=== PATIENT | female | born 1985 | race Caucasian/White ===

== ENCOUNTER 2021-06-30 09:26 | Emergency (ER) | payer OTHER ==
[~2021-06-30] VITALS: Ht 149.9 cm; Wt 45.4 kg
--- NOTE | 2021-06-30 09:30 | NUR ---
BIBS FOR C/O HEADACHE AND LEFT SIDED FACE AND ARM NUMBNESS SINCE 11 PM LAST NIGHT. IN ROOM AIR AND DENIES SOB. RESPIRATION REGULAR AND UNLABORED. ATTACHED TO THE MONITOR. WILL CONTINUE TO MONITOR THE PATIENT.
[2021-06-30] MEDS ORDERED: diphenhydrAMINE HCL 50 MG/ML VIAL ONE (10:07)
[2021-06-30] MEDS ORDERED: SUMATRIPTAN SUCCINATE 6 MG/0.5 ML VIAL SQ ONE (10:07)
[2021-06-30] MEDS: diphenhydrAMINE HCL 50 MG/ML VIAL IV ONE (10:10)
[2021-06-30] MEDS: IV NS 0.9% 1,000 ML BAG IV ONE (10:18)
[2021-06-30] MEDS: SUMATRIPTAN SUCCINATE 6 MG/0.5 ML VIAL SQ ONE (10:30)
[2021-06-30] MEDS ORDERED: KETOROLAC TROMETHAMINE INJ 30 MG/ML VIAL ONE (11:06)
[2021-06-30] MEDS: KETOROLAC TROMETHAMINE INJ 30 MG/ML VIAL IV ONE (11:09)
--- NOTE | 2021-06-30 11:09 | NUR ---
THE PATIENT IS TAKEN TO CT VIA RNEY
[2021-06-30] MEDS ORDERED: ONDA4TAB5 PO (12:01)
[2021-06-30] MEDS ORDERED: P-EP-92 PO (12:01)
[2021-06-30] MEDS ORDERED: IBUP-1957 PO (12:01)
[2021-06-30] MEDS ORDERED: CLIN300C12 PO (12:01)
--- NOTE | 2021-06-30 12:48 | NUR ---
IV removed. Catheter intact and site benign. Pressure and 4x4 applied to site. No bleeding noted.Patient discharged to home in stable condition. Written and verbal after care instructions given. Patient verbalizes understanding of instruction.
[2021-06-30 12:49] VITALS: BP 126/75
== END 2021-06-30 12:50 | disposition home or self-care (01) ==
LOC: ER 09:30
DX: G43.909 Migraine, unspecified, not intractable, without status migrainosus (principal); J32.0 Chronic maxillary sinusitis; Z88.8 Allergy status to other drugs, medicaments and biological substances
CPT/HCPCS: 70450; 96361; 96372; 96374; 99284; J1885; J3030; J7030; J1200

== ENCOUNTER 2024-01-17 15:48 | Emergency (ER) | payer OTHER ==
[~2024-01-17] VITALS: Ht 152.4 cm; Wt 45.4 kg
[~2024-01-17 15:48] MED LIST: CLIN300C12 PO; IBUP-1957 PO; ONDA4TAB5 PO; P-EP-92 PO
[2024-01-17 16:40] LABS: BASOPHILS # (AUTO) 0.1 K/uL (0.0-0.2); BASOPHILS % (AUTO) 1.1 % (0.0-2.0); CALCIUM, SERUM 8.5 mg/dL (8.5-10.1); CARBON DIOXIDE 28 mmol/L (21-32); CHLORIDE 106 mmol/L (98-107); CREATININE 1.2 mg/dL (0.6-1.3); EOSINOPHILS # (AUTO) 0.3 K/uL (0.0-0.7); EOSINOPHILS % (AUTO) 3.7 % (0.0-6.0); GLUCOSE 104 mg/dL (74-106); HEMATOCRIT 38 % (33-45); HEMOGLOBIN 12.7 g/dL (11.5-14.8); LYMPHOCYTES % (AUTO) 27.2 % (20.0-44.0); MEAN CORPUSCULAR HEMOGLOBIN 30 PG (26.0-33.0); MEAN CORPUSCULAR HGB CONC 34 g/dl (31.0-36.0); MEAN CORPUSCULAR VOLUME 90 fL (82-100); MONOCYTES # (AUTO) 0.4 K/uL (0.1-1.30); MONOCYTES % (AUTO) 4.9 % (2.0-12.0); NEUTROPHILS # (AUTO) 4.6 K/uL (1.8-8.9); NEUTROPHILS % (AUTO) 63.1 % (43.0-81.0); PLATELET COUNT (AUTO) 212 K/uL (150-450); POTASSIUM 3.8 mmol/L (3.5-5.1); RED BLOOD CELL COUNT(AUTO) 4.19 MIL/uL (4.0-5.2); RED CELL DISTRIBUTION WIDTH 13.4 % (11.5-15.0); SODIUM SERUM 140 mmol/L (136-145); UREA NITROGEN, BLOOD 13 mg/dL (7-18); WHITE BLOOD COUNT (AUTO) 7.3 K/uL (4.3-11.0)
[2024-01-17 16:43] LABS: INR 1.05 (0.91-1.10); PARTIAL THROMBOPLASTIN TIME 26.7 SEC (24.3-34.3); PROTHROMBIN TIME 11.1 SECS (9.2-11.1)
[2024-01-17 16:48] LABS: ACETAMINOPHEN <10 ug/ml (10-30); ALANINE AMINOTRANSFERASE 19 U/L (12-78); ALBUMIN 3.7 g/dL (3.4-5.0); ALCOHOL, BLOOD < 3 mg/dL (0-10); ALKALINE PHOSPHATASE 63 U/L (46-116); ASPARTATE AMINOTRANSFERASE 14 U/L (15-37); BILIRUBIN,DIRECT 0.1 mg/dL (0.0-0.2); BILIRUBIN,TOTAL 0.2 mg/dL (0.2-1.0); SALICYLATE 1.6 mg/dL (2.8-20.0)
[2024-01-17 16:54] LABS: THYROID STIMULATING HORMONE 1.44 uIU/mL (0.358-3.74)
[2024-01-17 17:31] LABS: APPEARANCE,URINE CLEAR (CLEAR); BILIRUBIN,URINE NEGATIVE (NEGATIVE); BLOOD, URINE NEGATIVE Ery/uL (NEGATIVE); COLOR,URINE YELLOW (YELLOW); KETONES,URINE NEGATIVE (NEGATIVE); LEUKOCYTE ESTERASE ,URINE 2+ (NEGATIVE); NITRITE, URINE NEGATIVE (NEGATIVE); PROTEIN,URINE NEGATIVE (NEGATIVE); UGLUCOSE NEGATIVE (NEGATIVE); UROBILINOGEN,URINE 0.2 EU/dL (0.2)
[2024-01-17 17:34] LABS: PREGNANCY TEST URINE QUAL NEGATIVE (NEGATIVE)
[2024-01-17 17:35] LABS: AMPHETAMINE, URINE NEGATIVE (NEGATIVE); BARBITURATE, URINE NEGATIVE (NEGATIVE); BENZODIAZEPINE, URINE NEGATIVE (NEGATIVE); CANNABINOID, URINE NEGATIVE (NEGATIVE); COCCAINE, URINE NEGATIVE (NEGATIVE); OPIATE, URINE NEGATIVE (NEGATIVE); PHENCYCLIDINE SCREEN,URINE NEGATIVE (NEGATIVE)
[2024-01-17 17:45] LABS: ADD URINE CULTURE YES; BACTERIA,URINE None seen /HPF (None Seen); RBC,URINE NONE SEEN /HPF (0-2)
[2024-01-17 19:06] VITALS: BP 105/66; TEMP 99.1; O2SAT 98
== END 2024-01-17 19:06 | disposition home or self-care (01) ==
LOC: ER 15:50
DX: R41.82 Altered mental status, unspecified (principal); R07.9 Chest pain, unspecified; Z79.1 Long term (current) use of non-steroidal anti-inflammatories (NSAID); Z88.0 Allergy status to penicillin; Z88.5 Allergy status to narcotic agent
CPT/HCPCS: 36415; 70450-TC; 80048-TC; 80076-TC; 81001; 84439-TC; 84443-TC; 84484-TC; 84703-TC; 85025-TC; 85730-TC; 87086-TC; G0480